=== PATIENT | female | born 1960 ===

== ENCOUNTER 2017-04-13 11:06 | Emergency (ER) | payer OTHER ==
[2017-04-13] MEDS ORDERED: Ammonia 2% Inhalant ONE (11:12)
--- NOTE | 2017-04-13 11:14 | C.PDOC ---
History Of Present Illness 56 year old female who was brought in to the ER for anxiety and agitation. As per EMS, patient was working at [employer] and got into an argument with a co- worker which caused her to become very agitated. Patient has not verbalized any physical complaints at this time. Time Seen by Provider: 04/13/17 11:10 Chief Complaint (Nursing): Anxiety History Per: Patient History/Exam Limitations: no limitations Onset/Duration Of Symptoms: Hrs Current Symptoms Are (Timing): Still Present Suicide/Self Injury Attempted (Context): None Associated Symptoms: Anxiety, Agitation Recent travel outside of the [place]: No Past Medical History Reviewed: Historical Data, Nursing Documentation, Vital Signs Vital Signs: Last Vital Signs Temp 98.4 F 04/13/17 11:23 Pulse 85 04/13/17 14:33 Resp 14 04/13/17 14:33 BP 121/81 04/13/17 14:33 Pulse Ox 95 04/13/17 14:33 - Medical History PMH: No Chronic Diseases Surgical History: No Surg Hx Family History: States: Unknown Family Hx Review Of Systems Constitutional: Negative for: Fever, Chills Cardiovascular: Negative for: Chest Pain Respiratory: Negative for: Cough, Shortness of Breath Gastrointestinal: Negative for: Nausea, Vomiting, Abdominal Pain, Diarrhea Psych: Positive for: Anxiety Physical Exam - Physical Exam Appears: Non-toxic, Other (Hyperventilating, not answering questions, crying.) Skin: Normal Color, Warm, Dry Head: Atraumatic, Normacephalic Oral Mucosa: Moist Chest: Symmetrical, No Tenderness Cardiovascular: Rhythm Regular, No Murmur Respiratory: Normal Breath Sounds, No Rales, No Rhonchi, No Wheezing Gastrointestinal/Abdominal: Soft, No Tenderness Neurological/Psych: Oriented x3, Normal Speech, Normal Cognition, Other (No focal deficits) ED Course And Treatment - Laboratory Results Result Diagrams: 04/13/17 11:58 04/13/17 11:58 Medical Decision Making Medical Decision Making: once the patient calmed down she related that she is very stressed due to being "overworked" and "discriminated" against at work for the last few months. she was seen by psych service who cleared her for dc. pt son and family at bedside, agree w plan for dc and pcp follow up. all questions and concerned addressed at this time Disposition Discussed With Dr.: Emely Thompson Comment: Psychiatry evaluated patient and cleared them for discharge. - Disposition Referrals: [facility] [Outside] [facility] [Outside] Disposition: HOME/ ROUTINE Disposition Time: 14:23 Condition: GOOD Instructions: Anxiety (ED) Forms: Gen Discharge Inst Slovenian, Work Excuse Print Language: HUNGARIAN - Clinical Impression Clinical Impression: Hyperventilation, Stress reaction - Scribe Statement The provider has reviewed the documentation as recorded by the Scribsamia Coelho All medical record entries made by the Leobardoibsamia were at my direction and personally dictated by me. I have reviewed the chart and agree that the record accurately reflects my personal performance of the history, physical exam, medical decision making, and the department course for this patient. I have also personally directed, reviewed, and agree with the discharge instructions and disposition.
[2017-04-13 11:19] VITALS: TEMP 98.4
[2017-04-13] MEDS ORDERED: Ammonia 2% Inhalant INH ONE (11:23)
[2017-04-13 12:19] LABS: ALB/GLOB RATIO 1.1 (1.0-2.1); AST/SGOT 19 U/L (14-36); BLOOD UREA NITROGEN 20 mg/dL (7-17); GFR AFRICAN-AMERICAN > 60; GFR NON-AFRICAN AMERICAN > 60
[2017-04-13 12:20] LABS: ALT/SGPT 17 U/L (9-52); SALICYLATE < 1.0 mg/dL 1
[2017-04-13 12:21] LABS: ACETAMINOPHEN < 10.0 ug/mL (10.0-30.0)
[2017-04-13 12:31] LABS: BASO % 0.4 % (0.0-2.0); EOS % 0.6 % (0.0-4.0); HEMOGLOBIN 12.4 g/dL (11.0-16.0); LYMPH # 1.4 K/uL (1.0-4.3); LYMPH % 20.9 % (20.0-40.0); MEAN CELL VOLUME 85.2 fL (81.0-99.0); MEAN CORPUSCULAR HGB CONC 32.9 g/dL (33.0-37.0); MEAN PLATELET VOLUME 9.6 fL (7.2-11.7); MONO # 0.5 K/uL (0.0-0.8); MONO % 6.7 % (0.0-10.0); NEUT # 4.9 K/uL (1.8-7.0); NEUT % 71.4 % (50.0-75.0); NRBC % 0.1 % (0.0-2.0); RBC 4.41 Mil/uL (3.80-5.20); WHITE BLOOD COUNT 6.9 K/uL (4.8-10.8)
--- NOTE | 2017-04-13 13:27 | RAD ---
PROCEDURE: CHEST RADIOGRAPH, 1 VIEW HISTORY: Detox/Psy COMPARISON: None available. FINDINGS: LUNGS: Poor inspiration with low lung volumes, crowded bronchovascular markings and mild bibasilar atelectasis. PLEURA: No pneumothorax or pleural fluid seen. CARDIOVASCULAR: Heart size upper limits of normal OSSEOUS STRUCTURES: Minor degenerative changes both shoulder girdles. VISUALIZED UPPER ABDOMEN: The upper abdomen is not well delineated due to underpenetration and large body habitus. OTHER FINDINGS: None. IMPRESSION: Poor inspiration with low lung volumes, crowded bronchovascular markings and mild bibasilar atelectasis.
[2017-04-13 14:18] LABS: SQUAMOUS EPITHIAL 1 /hpf (0-5); URINE BILIRUBIN NEGATIVE (NEGATIVE); URINE BLOOD NEGATIVE (NEGATIVE); URINE CLARITY Clear (Clear); URINE COLOR Yellow (YELLOW); URINE GLUCOSE (UA) NORMAL (Normal); URINE LEUKOCYTE ESTERASE NEG Leu/uL (Negative); URINE NITRATE NEGATIVE (NEGATIVE); URINE PROTEIN NEGATIVE (NEGATIVE); URINE UROBILINOGEN NORMAL mg/dL (0.2-1.0)
[2017-04-13 14:27] LABS: BARBITURATES, UR NEGATIVE (NEGATIVE)
[2017-04-13 14:28] LABS: BENZODIAZEPINES, UR NEGATIVE (NEGATIVE)
[2017-04-13 14:31] LABS: OPIATES, UR NEGATIVE (NEGATIVE)
[2017-04-13 14:32] LABS: PHENCYCLIDINE, UR NEGATIVE (NEGATIVE)
[2017-04-13 14:34] VITALS: BP 121/81; PULSE 85; RESP 14; O2SAT 95
--- NOTE | 2017-04-14 21:26 | CARD ---
APPROVED REPORT EKG Measurement Heart [id number] <Conclusion> Sinus tachycardia with occasional and consecutive premature ventricular complexes ST & T wave abnormality, consider inferolateral ischemia Abnormal ECG
== END 2017-04-13 14:40 | disposition home or self-care (01) ==
LOC: C.ER 11:06
DX: F43.9 Reaction to severe stress, unspecified (principal); R06.4 Hyperventilation
CPT/HCPCS: 71010; 80053; 81001; 84484; 85025; 93005; 96374; 99283; G0480; J2060